=== PATIENT | female | born 1945 | race Caucasian/White ===

== ENCOUNTER → 2016-09-05 | Outpatient (CLI) | payer OTHER | LOC: FIMAGING 15:23 | DX: Z12.31 Encounter for screening mammogram for malignant neoplasm of breast (principal) | CPT/HCPCS: G0202 ==

== ENCOUNTER → 2016-09-11 | Outpatient (CLI) | payer OTHER | LOC: FIMAGING 09:20 | PROVIDERS: ATTEND Internal Medicine | DX: Z12.39 Encounter for other screening for malignant neoplasm of breast (principal); R92.0 Mammographic microcalcification found on diagnostic imaging of breast | CPT/HCPCS: G0206 ==

== ENCOUNTER → 2016-10-03 | Day surgery (SDC) | payer OTHER ==
[~2016-10-03] MED LIST: THROMBIN (BOVINE) 5,000 UNIT VIAL TP ONE
== END | disposition home or self-care (01) ==
LOC: FIMAGING 11:31
PROVIDERS: ATTEND Internal Medicine
DX: R92.0 Mammographic microcalcification found on diagnostic imaging of breast (principal)
CPT/HCPCS: G0206

== ENCOUNTER → 2018-07-08 | Outpatient (CLI) | payer OTHER | LOC: FCPNEURO 23:32 | PROVIDERS: ATTEND Student in an Organized Health Care Education/Training Program | DX: G47.33 Obstructive sleep apnea (adult) (pediatric) (principal) ==

== ENCOUNTER → 2018-12-29 | Outpatient (CLI) | payer OTHER | LOC: FCPNEURO 20:30 ==